=== PATIENT | male | born 1950 | race Caucasian/White ===

== ENCOUNTER 2024-07-28 05:11 | Emergency (ER) | payer MEDICARE, SELFPAY ==
--- NOTE | 2024-07-28 | ECG_ITS ---
Test Reason : ACID REFLUX/ PAIN Blood Pressure : / mmHG Vent. Rate : 081 BPM Atrial Rate : 081 BPM P-R Int : 122 ms QRS Dur : 132 ms QT Int : 390 ms P-R-T Axes : 026 -57 022 degrees QTc Int : 453 ms Normal sinus rhythm with sinus arrhythmia Right bundle branch block Left anterior fascicular block Bifascicular block Abnormal ECG When compared with ECG of 05-JUL-2013 10:15, Premature ventricular complexes are no longer Present (RBBB and left anterior fascicular block) is now Present Referred By: Generic ED Physician Electronically Signed By:KALA JAEGER
--- NOTE | ~2024-07-28 | XR_ITS ---
EXAMINATION: XR CHEST CLINICAL INFORMATION: Epigastric pain COMPARISON: 07/05/2013 TECHNIQUE: 2 views of the chest were obtained. FINDINGS: Cardiac and mediastinal silhouette is stable, within normal limits.. Stable mild prominence of the central pulmonary vasculature. No focal consolidation, effusion, edema or pneumothorax. No interval change. XR/XR chest 2V IMPRESSION: No acute cardiopulmonary process seen. Electronically signed by: Adam Ricardo MD 07/28/2024 08:05 AM EDT
[2024-07-28 05:37] LABS: Basophils Absolute Auto 0.1 X10*3/uL (0.0-0.2); Basophils Percent Auto 0.6 % (0-2); Eosinophils Absolute Auto 0.2 X10*3/uL (0.0-0.4); Hematocrit 40.7 % (42.0-52.0); Hemoglobin 14.4 g/dl (14.0-18.0); Imm Gran Abs Auto 0.03 X10*3/uL (0.00-0.03); Imm Gran Pct Auto 0.4 % (0.0-0.4); Lymphocytes Absolute Auto 2.5 X10*3/uL (1.2-4.9); Lymphocytes Percent Auto 32.9 % (20-40); MANUAL DIFF FLAG NO; Mean Corpuscular HGB Conc 35.4 g/dl (31.0-36.0); Mean Corpuscular Hemoglobin 30.3 pg (27.0-33.0); Mean Corpuscular Volume 85.7 fL (80.0-98.0); Mean Platelet Volume 10.5 fL (9.4-12.4); Monocytes Percent Auto 12.4 % (2-11); Neutrophils Absolute Auto 3.9 x10*3/uL (2.0-8.3); Neutrophils Percent Auto 50.7 % (45-73); Platelet Count 232 X10*3/uL (160-400); Red Blood Count 4.75 X10*6/uL (4.60-5.80); Red Cell Distribution Width 13.5 % (11.0-16.0); White Blood Count 7.7 X10*3/uL (4.8-10.8)
[2024-07-28 05:38] VITALS: PULSE 90; RESP 16; O2SAT 96; BMI 25.4
[2024-07-28 05:41] VITALS: BP 152/85
[2024-07-28 05:54] LABS: Alanine Aminotransferase 19 U/L (0-40); Albumin Level 4.5 g/dL (3.5-5.0); Alkaline Phosphatase 77 U/L (39-117); Anion Gap 14 (12-20); Aspartate Amino Transferase 17 U/L (5-37); Bilirubin Total 0.6 mg/dL (0.0-1.0); Blood Urea Nitrogen 27 mg/dL (9-16); Calcium 11.3 mg/dL (8.4-10.2); Carbon Dioxide 28 mmol/L (22-29); Chloride 101 mmol/L (96-108); Creatinine Clr Calc Pharmacy 42.2; Estimated Glomerular Filt Rate 43; Glucose Random 123 mg/dL (60-115); Lipase 41 U/L (8-78); Potassium 4.2 mmol/L (3.3-5.1); Sodium 139 mmol/L (135-145); Total Protein 7.6 g/dL (6.5-8.0)
[2024-07-28 06:01] LABS: Troponin-I High Sensitivity 12.1 ng/L (<3.5-35.0)
--- NOTE | 2024-07-28 07:13 | ED.GENADULT ---
HPI - General Adult General Chief complaint: General Medical Stated complaint: Heartburn Time Seen by Provider: 07/28/24 06:37 Source: patient, RN notes reviewed and old records reviewed Mode of arrival: ambulatory History of Present Illness ED Provider: Farhana Benitez PA-C HPI narrative: 74-year-old male with no significant past medical history presenting to the ED complaining of worsening intermittent epigastric/left chest discomfort x few days described gas pains with increased belching. Admits to experiencing symptoms over the past 5 years however has been worsening. States pain improved with eating. Denies nausea, vomiting, SOB diarrhea, LE edema, recent travel, sick contacts Related Data Allergies Allergy/AdvReac Type Severity Reaction Status Date / Time No Known Allergies Allergy Verified 07/28/24 05:40 Review of Systems Review of Systems: Yes all other systems are reviewed and are negative Constitutional: Constitutional: Reports as per [facility] Past Medical History Attestation statement: The following information was validated with the patient. Source: old records reviewed Social History Social History Smoked in Last 30 Days: No Use of substances other than those prescribed or required for medical reasons: Yes Substance Use Type: Marijuana Substance Use Frequency: Daily Advance Directives: No Advance Directives Information Provided: Yes Do you have a plan to hurt others: No Plan Physical Exam ED Vital Signs: Vital Signs - 24 hr 07/28/24 05:38 07/28/24 05:41 07/28/24 08:23 Temperature 97.8 F Pulse Rate 90 67 Respiratory Rate 16 16 Blood Pressure 152/85 H 150/77 H Pulse Oximetry 96 96 Oxygen Delivery Method Room Air Room Air 07/28/24 09:51 07/28/24 10:21 Temperature 97.8 F 97.8 F Pulse Rate 66 66 Respiratory Rate 16 16 Blood Pressure 159/78 H 159/78 H Pulse Oximetry 96 96 Oxygen Delivery Method Room Air Room Air BMI result Body Mass Index 25.4 Const General: cooperative, healthy appearing and no acute distress Orientation/consciousness: patient oriented x3 Limitations: no limitations HENMT Head: Yes normal to inspection and Yes atraumatic Ears: hearing grossly normal bilaterally General nose exam: Normal external nose present Face and sinus: Yes normal facial exam Eyes General: appearance normal, both eyes and all related structures EOM: EOMs intact bilaterally Neck Neck: Yes normal visual inspection and Yes no meningeal signs Chest Chest palpation & inspection: normal inspection of the chest, no crepitus and no tenderness Resp Effort & Inspection: normal respiratory effort and no respiratory distress Auscultation: clear to auscultation bilaterally, no crackles, no rhonchi and no wheezes Cardio Rate: regular rate Heart sounds: S1 normal heart sound present and S2 normal heart sound present GI Inspection: Yes normal to inspection Palpation (GI): Soft to palpation, nontender, no guarding and not rigid General: Yes no CVA tenderness Back/Spine/Pelvis Back: no CVA tenderness Skin Rashes: no rashes Wounds: no wounds Neuro General: patient oriented x3, tone normal and no meningeal signs Cranial nerves: Yes CN's II-XII intact bilaterally Gait exam (Neuro): Normal gait present Extrem General: Yes normal to inspection and Yes no pedal edema Course Course Course Narrative: -BUN/creatinine with mild elevation, no priors to compare. Initial troponin 12.1 > will obtain 3 hour repeat -0938--after IVF mild improvement in renal function with creatinine 1.45, troponin equivocal, UT unlikely XR chest 2V IMPRESSION: No acute cardiopulmonary process seen. Results discussed with patient including worrisome signs and symptoms and strict return precautions, and when to return to the emergency department. They verbalized understanding and feel safe for discharge at this time. Medications Administered Discontinued Medications Generic Name Dose Route Start Last Admin Trade Name Freq PRN Reason Stop Dose Admin Al Hydroxide/Mg Hydroxide 30 ml 07/28/24 08:46 07/28/24 09:26 Magnesium Hydrox/Alum Hydrox 30 Ml Oral.Susp PO 07/28/24 08:47 30 ml ONCE ONE Administration Famotidine 20 mg 07/28/24 08:46 07/28/24 09:26 Famotidine 20 Mg Tablet PO 07/28/24 08:47 20 mg ONCE ONE Administration Sodium Chloride 1,000 mls @ 999 mls/hr 07/28/24 07:45 07/28/24 08:39 Ns IV 07/28/24 08:45 Not Given .Q1H1M [facility] Medical Decision Making Medical Decision Making [facility] Narrative: 74-year-old male with no significant past medical history presenting to the ED complaining of worsening intermittent epigastric/left chest discomfort x few days described gas pains with increased belching. On exam vital signs stable, NAD, nontoxic appearing, lungs CTA, abdomen soft and nontender, chest pain not reproducible. Concern for atypical ACS vs biliary colic vs ? Pancreatitis. Rule out PTX and pneumonia. Lower suspicion for acute cholecystitis without tenderness on exam. Unlikely PE Plan: EKG, labs, CXR Please refer to course for remaining clinical decision making, interpretation of labs/imaging results, and discussions with consultants and/or family members. Differential Diagnosis Differential Diagnoses: The differential diagnosis associated with the presentation includes As above Admission/Observation Consideration of admission/observation: Escalation of care including admission/observation considered Lab Data MDM Lab Attestation statement: I reviewed the patient's lab results. 07/28/24 05:32 07/28/24 08:35 Labs: Lab Results 07/28/24 07/28/24 Range/Units 05:32 08:35 WBC 7.7 (4.8-10.8) X10*3/uL RBC 4.75 (4.60-5.80) X10*6/uL Hgb 14.4 (14.0-18.0) g/dl Hct 40.7 L (42.0-52.0) % MCV 85.7 (80.0-98.0) fL MCH 30.3 (27.0-33.0) pg MCHC 35.4 (31.0-36.0) g/dl RDW 13.5 (11.0-16.0) % Plt Count 232 (160-400) X10*3/uL MPV 10.5 (9.4-12.4) fL Immature Gran % (Auto) 0.4 (0.0-0.4) % Neut % (Auto) 50.7 (45-73) % Lymph % (Auto) 32.9 (20-40) % Emmons % (Auto) 12.4 H (2-11) % Eos % (Auto) 3.0 (0-4) % Baso % (Auto) 0.6 (0-2) % Lymph # (Auto) 2.5 (1.2-4.9) X10*3/uL Emmons # (Auto) 1.0 (0.1-1.2) X10*3/uL Eos # (Auto) 0.2 (0.0-0.4) X10*3/uL Baso # (Auto) 0.1 (0.0-0.2) X10*3/uL Abs Immat Gran (auto) 0.03 (0.00-0.03) X10*3/uL Absolute Neuts (auto) 3.9 (2.0-8.3) x10*3/uL Absolute Nucleated RBC 0.000 (0.0-0.012) X10*3/uL Nucleated RBC % (auto) 0.0 (0.0-0.2) /100WBC Sodium 139 139 (135-145) mmol/L Potassium 4.2 4.3 (3.3-5.1) mmol/L Chloride 101 101 (96-108) mmol/L Carbon Dioxide 28 28 (22-29) mmol/L Anion Gap 14 14 (12-20) BUN 27 H 27 H (9-16) mg/dL Creatinine 1.58 H 1.45 H (0.5-1.4) mg/dL Estim Creat Clear Calc 42.2 46.0 Estimated GFR 43 48 Random Glucose 123 H 150 H (60-115) mg/dL Calcium 11.3 H 11.1 H (8.4-10.2) mg/dL Magnesium 1.8 (1.6-2.6) mg/dL Total Bilirubin 0.6 (0.0-1.0) mg/dL AST 17 (5-37) U/L ALT 19 (0-40) U/L Alkaline Phosphatase 77 (39-117) U/L Troponin I High Sens 12.1 12.0 (<3.5-35.0) ng/L Total Protein 7.6 (6.5-8.0) g/dL Albumin 4.5 (3.5-5.0) g/dL Lipase 41 (8-78) U/L Radiology Impression Discussion of test interpretation with radiology: I have reviewed the radiologist's reading. External Record Review External record reviewed: Inpatient record, Office record, Outpatient record, Prior outpatient labs, Prior outpatient radiology, Primary care record and Outside ED record Tests considered The following testing was considered but not selected: As above Discharge Plan Discharge Clinical Impression: Epigastric abdominal pain, Atypical chest pain Patient Disposition: Home, Self-Care Instructions: Noncardiac Chest Pain (ED) Additional Instructions: Your blood work showed mild elevation in your renal function, please stay hydrated at home, have repeat outpatient labs with your primary care doctor in 1 week If yourr symptoms persist, worsen, become more constant, shortness of breath or fever return to the emergency department Please follow-up with your doctor as well as Cardiology Referrals: [facility] [Provider Group] - 1 week Yony Srinivasan MD [Primary Care Provider] - 1 week Interventions: ED Discharge Assessment Last Done: 07/28/24 10:21 Discharge Date/Time: 07/28/24 10:23 Print Language: Armenian
[2024-07-28 07:25] LABS: Magnesium 1.8 mg/dL (1.6-2.6)
[2024-07-28 08:23] VITALS: BP 150/77; PULSE 67; RESP 16; TEMP 36.6; O2SAT 96
--- NOTE | 2024-07-28 08:40 | PC.NURSE ---
Pt reports that he stays very well hydrated and is declining fluids. states that epigastric pain is intermittent but this has been sustained sincethis am at 4. Burping accompanies pain at times. no belching at this time. NAD. awaits repeat troponins.
[2024-07-28 08:56] LABS: Anion Gap 14 (12-20); Blood Urea Nitrogen 27 mg/dL (9-16); Calcium 11.1 mg/dL (8.4-10.2); Carbon Dioxide 28 mmol/L (22-29); Chloride 101 mmol/L (96-108); Estimated Glomerular Filt Rate 48; Glucose Random 150 mg/dL (60-115); Potassium 4.3 mmol/L (3.3-5.1); Sodium 139 mmol/L (135-145)
[2024-07-28] MEDS: Magnesium Hydrox/Alum Hydrox 30 ML ORAL.SUSP PO (09:26)
[2024-07-28] MEDS: Famotidine 20 MG TABLET PO (09:26)
[2024-07-28 09:51] VITALS: BP 159/78; PULSE 66; RESP 16; TEMP 36.6; O2SAT 96
[2024-07-28 10:21] VITALS: BP 159/78; PULSE 66; RESP 16; TEMP 36.6; O2SAT 96
== END 2024-07-28 10:23 | disposition home or self-care (01) ==
PROVIDERS: Physician Assistant; Emergency Provider Emergency Medicine; PCP Internal Medicine
DX: R07.89 Other chest pain (principal); R10.13 Epigastric pain; R14.2 Eructation
CPT/HCPCS: 36415; 71046; 80048; 80053; 83690; 83735; 84484; 85025; 93005; 99283; 99285